=== PATIENT | male | born 1980 | race Caucasian/White ===

== ENCOUNTER 2018-04-28 20:12 | Emergency (ER) | payer SELFPAY ==
[~2018-04-28] VITALS: Ht 180.3 cm; Wt 71.1 kg
[2018-04-28 20:21] VITALS: BP 153/45
[2018-04-28] MEDS: IBUPROFEN 600 MG TABLET. PO ONE (20:45)
--- NOTE | 2018-04-29 03:21 | ED.ADGEN ---
Past History Past Medical History: No Pertinent History Past Surgical History: No Surgical History Additional Smoking Information: Pt dips 2 cans a day too. Alcohol Use: None Drug Use: None Adult General Chief Complaint Chief Complaint Multiple insect stings HPI HPI Patient is a 37-year-old male who tripped while mowing the yard landing on the ground and was subsequently stung by multiple wasps to his hands, lower extremities. This occurred approximately 2 hours prior to ED arrival. Patient initially reports hives and swelling of hands and swelling of upper eyelids. Swelling is since resolved. No airway swelling, shortness of breath or wheezing. Denies history of hymenoptera allergy.[] Review of Systems Review of Systems Review symptoms as per history of present illness be All other systems were reviewed and found to be within normal limits, except as documented in this note. Current Medications Current Medications Current Medications Medications (Trade) Dose Ordered Sig/Jessy Start Time Stop Time Status Last Admin Dose Admin Ibuprofen (Motrin) 600 mg 1X ONCE 04/28/18 20:45 04/28/18 20:50 DC 04/28/18 20:45 600 MG Allergies Allergies Allergies Coded Allergies Type Severity Reaction Last Updated Verified Penicillins Allergy Severe 04/28/18 Yes Physical Exam Physical Exam Constitutional: Well developed, well nourished, no acute distress, non-toxic appearance. [] HENT: Normocephalic, atraumatic, bilateral external ears normal, oropharynx moist, no oral exudates, nose normal. [] Eyes: PERRLA, EOMI, conjunctiva normal, no discharge. [] Neck: Normal range of motion, no tenderness. [] Cardiovascular:Heart rate regular rhythm, no murmur [] Lungs & Thorax: Bilateral breath sounds clear to auscultation [] Abdomen: Bowel sounds normal, soft, no tenderness. [] Skin:multiple puncture wounds on hand consistent with wasp sting. [] Back: No tenderness. [] Extremities: No tenderness. [] Neurologic: Alert and oriented X 3, normal motor function, normal sensory function, no focal deficits noted. [] Psychologic: Affect normal, judgement normal, mood normal. [] Current Patient Data Vital Signs Vital Signs Date Time Temp Pulse Resp B/P (MAP) Pulse Ox O2 Delivery O2 Flow Rate FiO2 04/28/18 20:21 98.3 115 18 96 Room Air EKG EKG [] Radiology/Procedures Radiology/Procedures [] Course & Med Decision Making Course & Med Decision Making Pertinent Labs and Imaging studies reviewed. (See chart for details) [No hives or SOB.] Final Impression Final Impression [1. Multiple insect stings] Dragon Disclaimer Dragon Disclaimer This electronic medical record was generated, in whole or in part, using a voice recognition dictation system. ASHWIN MUÑOZ DO Apr 29, 2018 03:21
== END 2018-04-28 20:52 | disposition home or self-care (01) ==
LOC: ER 20:12
DX: T63.461A Toxic effect of venom of wasps, accidental (unintentional), initial encounter (principal); F17.200 Nicotine dependence, unspecified, uncomplicated; Z88.0 Allergy status to penicillin; Y92.096 Garden or yard of other non-institutional residence as the place of occurrence of the external cause
CPT/HCPCS: 99282